=== PATIENT | male | born 1965 | race Caucasian/White ===

== ENCOUNTER 2017-07-01 01:33 | Emergency (ER) | payer OTHER ==
[~2017-07-01] VITALS: Ht 162.6 cm; Wt 99.2 kg
[~2017-07-01 01:33] MED LIST: BENZTROPINE ME0.5 MG PO; OLANZAPINE10 MG PO; OLANZAPINE15 MG PO; OLANZAPINE5 MG PO; SERTRALINE HCL100 MG PO; ZOLOFT100 MG PO
[2017-07-01] MEDS ORDERED: KEFLEX500 MG PO (01:55)
[2017-07-01 02:04] VITALS: BP 152/107
[2017-07-01] MEDS ORDERED: ZOLOFT100 MG PO ×2 (21:28→21:29)
[2017-07-01] MEDS ORDERED: GLUCOPHAGE500 MG PO (21:31)
[2017-07-01] MEDS ORDERED: VIGAMOX 0.60 DROP/3 LEFT EYE (21:32)
[2017-07-01] MEDS ORDERED: ZYPREXA15 MG PO (21:33)
== END 2017-07-01 02:10 | disposition home or self-care (01) ==
LOC: EME 01:33 → EXP 01:33
DX: L03.90 Cellulitis, unspecified (principal); S80.812A Abrasion, left lower leg, initial encounter; F32.9 Major depressive disorder, single episode, unspecified; F20.9 Schizophrenia, unspecified; F17.200 Nicotine dependence, unspecified, uncomplicated
CPT/HCPCS: 99281; 99284

== ENCOUNTER 2017-07-01 15:08 | Inpatient (IN) | payer OTHER ==
[~2017-07-01] VITALS: Ht 162.6 cm; Wt 99.8 kg
[~2017-07-01 15:08] MED LIST changes: +KEFLEX500 MG PO
[2017-07-01 16:52] LABS: EOSINOPHIL (%) 0.6 % (0-5); EOSINOPHIL COUNT 0.1 K/uL (0-0.3); HEMATOCRIT 45.1 % (38.0-50.0); IMMATURE GRANULOCYTE (%) 0.4 % (0.0-0.7); IMMATURE GRANULOCYTE COUNT 0.1 K/uL; INSTRUMENT ABS NEUTROPHIL CT 8.5 K/uL; LYMPHOCYTE COUNT 2.6 K/uL (1.0-2.8); MCH 31.6 PG (29.0-34.0); MCHC 34.1 G/DL (30.0-36.0); MCV 92.4 FL (86-99); MONOCYTE (%) 10.8 % (3-12); MONOCYTE COUNT 1.4 K/uL (0-0.8); NEUTROPHIL (%) 67.5 % (45-76); NEUTROPHIL COUNT 8.5 K/uL (1.8-6.4); PLATELET COUNT 232 K/uL (156-360); RBC DIS.WIDTH-CV 12.8 % (11.8-14.6); RBC DIS.WIDTH-SD 43.5 % (39-53); RED BLOOD COUNT 4.88 M/uL (4.00-5.50); WHITE BLOOD COUNT 12.6 K/uL (4.1-10.2)
[2017-07-01 16:58] LABS: CHLORIDE 100 mEq/L (99-109); POTASSIUM 3.4 mEq/L (3.7-5.4); SODIUM 137 mEq/L (136-147)
[2017-07-01 17:00] LABS: GLUCOSE 110 mg/dL (70-99)
[2017-07-01 17:01] LABS: ANION GAP 15 MEQ/L (2-14)
[2017-07-01 17:03] LABS: SERUM ETHYL ALCOHOL < 10 mg/dL
[2017-07-01 17:04] LABS: GFR ESTIMATE (CALCULATED) > 59 mL/min/
[2017-07-01 17:05] LABS: UREA NITROGEN (BUN) 12 mg/dL (9-23)
[2017-07-01 18:38] LABS: AMPHETAMINE NEGATIVE (500 ng/mL); BARBITURATES NEGATIVE (200 ng/mL); BENZODIAZEPINES NEGATIVE (150 ng/mL); COCAINE NEGATIVE (150 ng/mL); INTERNAL CONTROLS VALID? YES; METHADONE NEGATIVE (200 ng/mL); METHAMPHETAMINE NEGATIVE (500 ng/mL); OPIATES (MORPHINE) NEGATIVE (100 ng/mL); OXYCODONE NEGATIVE (100 ng/mL); PHENCYCLIDINE NEGATIVE (25 ng/mL); PROPOXYPHENE NEGATIVE (300 ng/mL); THC CANNABINOIDS NEGATIVE (50 ng/mL); TRICYCLIC ANTIDEPRESSANTS NEGATIVE (300 ng/mL)
[2017-07-01 20:14] VITALS: BP 129/74
[2017-07-01] MEDS ORDERED: ZOLOFT100 MG PO ×2 (21:28→21:29)
[2017-07-01] MEDS ORDERED: GLUCOPHAGE500 MG PO (21:31)
[2017-07-01] MEDS ORDERED: VIGAMOX 0.60 DROP/3 LEFT EYE (21:32)
[2017-07-01] MEDS ORDERED: ZYPREXA15 MG PO (21:33)
[2017-07-02 07:42] VITALS: BP 122/79
[2017-07-02 16:08] VITALS: BP 127/80
[2017-07-03 08:08] VITALS: BP 112/59
[2017-07-03 08:49] LABS: Estimated Average Glucose 137 mg/dL (70-123); HEMOGLOBIN A1c (GLYCOHEMOGLOB) 6.4 % HGB (Below 5.7)
[2017-07-03 15:31] VITALS: BP 125/72
[2017-07-04 07:36] VITALS: BP 97/57
[2017-07-04 15:20] VITALS: BP 141/77
[2017-07-05 07:28] VITALS: BP 107/60
[2017-07-05 15:38] VITALS: BP 125/60
[2017-07-06 08:05] VITALS: BP 106/67
[2017-07-06 17:55] VITALS: BP 95/51
[2017-07-07 07:35] VITALS: BP 108/57
[2017-07-07] MEDS ORDERED: ZYPREXA20 MG PO ×2 (09:59→11:12)
== END 2017-07-07 14:58 | disposition home or self-care (01) | DRG 885 ==
LOC: EME 15:08 → EDOF 18:13 → 1WEST 18:13 → ENRESERV 20:10 → 1WEST 20:10
PROVIDERS: Emergency Medicine; Psychiatry & Neurology Psychiatry
DX: F20.9 Schizophrenia, unspecified (principal); Z91.14 Patient's other noncompliance with medication regimen; R45.851 Suicidal ideations; E11.9 Type 2 diabetes mellitus without complications; F32.9 Major depressive disorder, single episode, unspecified; H54.62 Unqualified visual loss, left eye, normal vision right eye; F17.200 Nicotine dependence, unspecified, uncomplicated
CPT/HCPCS: 80048; 82607; 82746; 83036; 85025; 90839; 97150 GO; 97165 GO; 99281; 99284; G0480